=== PATIENT | male | born 1950 | race Caucasian/White ===

== ENCOUNTER 2020-07-20 09:19 | Outpatient (CLI) | payer MEDICARE ==
[2020-07-20 12:28] LABS: #Basophils 0.1 10x3/uL (0.0-0.2); #Eosinphils 1.8 10x3/uL (0.0-0.5); #Monocytes 0.8 10x3/uL (0.0-1.1); %Basophils 0.6 % (0.0-2.0); %Eosinophils 19.3 % (0.0-6.0); %Lymphocytes 17.6 % (18.0-47.0); %Monocytes 8.5 % (0.0-10.0); %Neutrophils 53.4 % (40.0-75.0); Hemoglobin 11.8 g/dL (13.5-17.5); Mean Corpuscular HGB CONC 34.1 g/dL (32.0-36.0); Mean Corpuscular Hemoglobin 30.6 pg (27.0-33.0); Mean Corpuscular Volume 89.9 fl (81.2-95.1); Platelet Count 211 10x3/uL (150-450); RBC Distribution Width 13.3 % (11.5-14.5); Red Blood Cell (RBC) Count 3.85 10x6/uL (4.32-5.72); White Blood Cell (WBC) Count 9.3 10x3/uL (3.5-10.5)
[2020-07-20 12:46] LABS: Anion Gap 14 mmol/L (10-20); BUN (Urea Nitrogen) 22 mg/dL (8.4-25.7); Calc. Creatinine Clearance 0 mL/min (70-130); Calcium 9.3 mg/dL (7.8-10.44); Carbon Dioxide 22 mmol/L (23-31); Chloride 106 mmol/L (98-107); Glucose 94 mg/dL (80-115); Potassium 4.5 mmol/L (3.5-5.1); Sodium 137 mmol/L (136-145)
[2020-07-20 13:05] LABS: INR-International Normal Ratio 1.1; Prothrombin Time 11.7 sec (9.5-12.1)
== END 2020-07-20 09:20 | disposition home or self-care (01) ==
LOC: LABBT 09:19
PROVIDERS: ATTEND Orthopaedic Surgery
DX: Z01.818 Encounter for other preprocedural examination (principal); M16.12 Unilateral primary osteoarthritis, left hip
CPT/HCPCS: 80048; 85025; 85610; 87081; 93005; 93010

== ENCOUNTER 2022-10-30 09:39 | Outpatient (CLI) | payer MEDICARE | END 2022-10-30 09:40 | disposition home or self-care (01) | LOC: SCSMRI 09:39 | PROVIDERS: ATTEND Orthopaedic Surgery | DX: M19.012 Primary osteoarthritis, left shoulder (principal); S46.912A Strain of unspecified muscle, fascia and tendon at shoulder and upper arm level, left arm, initial encounter; S43.402A Unspecified sprain of left shoulder joint, initial encounter ==

== ENCOUNTER 2022-12-03 12:17 | Outpatient (CLI) | payer MEDICARE ==
[2022-12-03 13:31] LABS: #Basophils 0.1 10x3/uL (0.0-0.2); #Eosinphils 0.4 10x3/uL (0.0-0.5); #Monocytes 0.7 10x3/uL (0.0-1.1); #Neutrophils 5.2 10x3/uL (1.5-8.4); %Basophils 0.6 % (0.0-2.0); %Eosinophils 5.3 % (0.0-6.0); %Lymphocytes 17.6 % (18.0-47.0); %Monocytes 8.9 % (0.0-10.0); %Neutrophils 67.2 % (40.0-75.0); Hemoglobin 12.5 g/dL (13.5-17.5); Mean Corpuscular HGB CONC 34.7 g/dL (32.0-36.0); Mean Corpuscular Volume 92.1 fl (81.2-95.1); Mean Platelet Volume 9.7 fl (7.4-10.4); Platelet Count 180 10x3/uL (150-450); RBC Distribution Width 13.1 % (11.5-14.5); Red Blood Cell (RBC) Count 3.91 10x6/uL (4.32-5.72); White Blood Cell (WBC) Count 7.7 10x3/uL (3.5-10.5)
[2022-12-03 13:53] LABS: Prothrombin Time 11.1 sec (9.5-12.1)
[2022-12-03 14:08] LABS: Anion Gap 15 mmol/L (10-20); BUN (Urea Nitrogen) 27 mg/dL (8.4-25.7); Calc. Creatinine Clearance 0 mL/min (70-130); Calcium 9.3 mg/dL (7.8-10.44); Carbon Dioxide 21 mmol/L (23-31); Chloride 105 mmol/L (98-107); Estimated GFR 67; Glucose 108 mg/dL (83-110); Potassium 4.3 mmol/L (3.5-5.1); Sodium 137 mmol/L (136-145)
== END 2022-12-03 12:18 | disposition home or self-care (01) ==
LOC: LABBT 12:17
PROVIDERS: ATTEND Orthopaedic Surgery
DX: Z01.818 Encounter for other preprocedural examination (principal); M19.012 Primary osteoarthritis, left shoulder
CPT/HCPCS: 80048; 85025; 85610; 93005; 93010

== ENCOUNTER 2023-03-12 12:49 | Outpatient (CLI) | payer MEDICARE ==
[2023-03-12 13:56] LABS: Anion Gap 11 mmol/L (10-20); BUN (Urea Nitrogen) 26 mg/dL (8.4-25.7); Calc. Creatinine Clearance 0 mL/min (70-130); Calcium 8.7 mg/dL (7.8-10.44); Carbon Dioxide 24 mmol/L (23-31); Chloride 106 mmol/L (98-107); Estimated GFR 53; Glucose 120 mg/dL (83-110); Potassium 4.3 mmol/L (3.5-5.1); Prothrombin Time 10.8 sec (9.5-12.1); Sodium 137 mmol/L (136-145)
[2023-03-12 14:04] LABS: #Basophils 0.1 10x3/uL (0.0-0.2); #Eosinphils 0.4 10x3/uL (0.0-0.5); #Monocytes 0.7 10x3/uL (0.0-1.1); #Neutrophils 5.8 10x3/uL (1.5-8.4); %Basophils 0.7 % (0.0-2.0); %Eosinophils 4.5 % (0.0-6.0); %Lymphocytes 15.9 % (18.0-47.0); %Monocytes 8.1 % (0.0-10.0); %Neutrophils 70.3 % (40.0-75.0); Hematocrit 33.8 % (38.8-50.0); Hemoglobin 11.9 g/dL (13.5-17.5); Mean Corpuscular HGB CONC 35.2 g/dL (32.0-36.0); Mean Corpuscular Hemoglobin 32.3 pg (27.0-33.0); Mean Corpuscular Volume 91.8 fl (81.2-95.1); Mean Platelet Volume 9.6 fl (7.4-10.4); Platelet Count 208 10x3/uL (150-450); RBC Distribution Width 12.9 % (11.5-14.5); Red Blood Cell (RBC) Count 3.68 10x6/uL (4.32-5.72); White Blood Cell (WBC) Count 8.3 10x3/uL (3.5-10.5)
== END 2023-03-12 12:50 | disposition home or self-care (01) ==
LOC: LABBT 12:49
PROVIDERS: ATTEND Orthopaedic Surgery
DX: Z01.818 Encounter for other preprocedural examination (principal); M19.012 Primary osteoarthritis, left shoulder
CPT/HCPCS: 80048; 85025; 85610; 93005; 93010

== ENCOUNTER 2023-03-20 06:31 | Observation (INO) | payer MEDICARE ==
[2023-03-20] MEDS ORDERED: Lidocaine 2% PF 5 ML VIAL ONE (06:38)
[2023-03-20] MEDS ORDERED: Rocuronium Bromide 10 MG/ML (10ML VIAL) ONE (06:38)
[2023-03-20] MEDS ORDERED: PROPOFOL 20 ML ONE (06:38)
[2023-03-20] MEDS ORDERED: Phenylephrine 10 MG/ML VIAL ONE (06:39)
[2023-03-20] MEDS ORDERED: fentaNYL 50 mcg/mL 1 mL Vial ONE ×2 (06:48→10:07)
[2023-03-20] MEDS ORDERED: Ropivacaine 0.5% HCl/PF (150 MG/30 ML VIAL) ONE (06:49)
[2023-03-20] MEDS ORDERED: Ropivacaine 0.2% HCl/PF 20 ML ONE (06:49)
[2023-03-20] MEDS ORDERED: Midazolam HCl 2 mg/2 ml Vial ONE (06:49)
[2023-03-20] MEDS ORDERED: Tranexamic Acid 1,000 MG/10 ML VIAL ONE (07:00)
[2023-03-20] MEDS ORDERED: Vancomycin (BATCH) 1.5 GM/300 ML BAG ONE (07:00)
[2023-03-20] MEDS ORDERED: Sodium Chloride 0.9% 100 ML ONE ×2 (07:00→07:08)
[2023-03-20] MEDS ORDERED: CEFAZOLIN 2 GM VIAL ONE (07:08)
[2023-03-20] MEDS ORDERED: fentaNYL PF 100 MCG/2 ML SYRINGE ONE (07:33)
[2023-03-20] MEDS ORDERED: fentaNYL 50 mcg/mL 1 mL Vial SLOW IVP PRN (07:36)
[2023-03-20] MEDS ORDERED: traMADol HCl 50 MG TAB PO PRN (07:45)
[2023-03-20] MEDS ORDERED: Ropivacaine 0.2% 550 ML 550 ML NERVE BLCK SCH (07:45)
[2023-03-20] MEDS ORDERED: Promethazine HCl 25 MG/ML VIAL IM PRN (07:45)
[2023-03-20] MEDS ORDERED: Zolpidem Tartrate 5 MG TAB PO PRN ×2 (07:45→12:05)
[2023-03-20] MEDS ORDERED: Ondansetron PF 4 MG/2 ML Vial IVP PRN ×2 (07:45→12:05)
[2023-03-20] MEDS ORDERED: Ondansetron PF 4 MG/2 ML Vial ONE (08:01)
[2023-03-20] MEDS ORDERED: Dexamethasone 20 MG/5 ML VIAL ONE (08:01)
[2023-03-20] MEDS ORDERED: Glycopyrrolate 0.2 MG/ML 5 ML SYRINGE ONE (09:30)
[2023-03-20] MEDS ORDERED: NEOSTIGMINE 3 MG/3 ML SYR 3 MG/3 ML SYRINGE ONE (09:30)
[2023-03-20] MEDS ORDERED: Milk Of Magnesia 30 ML UDCUP PO PRN (12:05)
[2023-03-20] MEDS ORDERED: Bisacodyl 10 MG SUPP PR PRN (12:05)
[2023-03-20] MEDS ORDERED: diphenhydrAMINE 50 MG CAP PO PRN (12:05)
[2023-03-20] MEDS ORDERED: Acetaminophen 325 MG TAB PO PRN (12:05)
[2023-03-20] MEDS ORDERED: Ondansetron ODT 4 MG TAB PO PRN (12:05)
[2023-03-20] MEDS ORDERED: CEFAZOLIN 2 GM in Sodium Chloride 0.9% 100 ML IVPB SCH (12:05)
[2023-03-20 12:46] VITALS: BMI 29.8
[2023-03-20] MEDS: Sodium Chloride 0.9% 1,000 ML IV SCH (13:54)
[2023-03-20] MEDS: CEFAZOLIN 2 GM in Sodium Chloride 0.9% 100 ML IVPB SCH (15:36)
[2023-03-20] MEDS: Gabapentin 400 MG CAP PO SCH (20:42)
[2023-03-20] MEDS: Amlodipine 5 MG TAB PO SCH (20:42)
[2023-03-20] MEDS: Potassium Chloride 10 MEQ TAB PO SCH (20:43)
[2023-03-20] MEDS: Hydrochlorothiazide 25 MG TAB PO SCH (20:43)
[2023-03-20] MEDS: Famotidine 20 MG TAB PO SCH (20:44)
[2023-03-20] MEDS: HYDROcodone/Acetaminophen 10/325 mg Tablet PO PRN (21:50)
[2023-03-21] MEDS: traMADol HCl 50 MG TAB PO PRN (00:39)
[2023-03-21] MEDS: HYDROcodone/Acetaminophen 10/325 mg Tablet PO PRN (02:20)
[2023-03-21 04:53] LABS: Hematocrit 27.4 % (42.0-52.0); Hemoglobin 9.3 g/dL (14.0-18.0); Mean Corpuscular HGB CONC 33.9 g/dL (32.0-36.0); Mean Corpuscular Hemoglobin 32.4 pg (27.0-31.0); Mean Corpuscular Volume 95.5 fl (78.0-98.0); Mean Platelet Volume 9.5 fL (7.4-10.4); Platelet Count 193 10x3/uL (130-400); RBC Distribution Width 13.6 % (11.5-14.5); Red Blood Cell (RBC) Count 2.87 mill/uL (4.70-6.10); White Blood Cell (WBC) Count 10.6 10x3/uL (4.8-10.8)
[2023-03-21 05:15] LABS: Anion Gap 12 mmol/L (10-20); BUN (Urea Nitrogen) 18 mg/dL (8.4-25.7); Calc. Creatinine Clearance 75 mL/min (70-130); Calcium 8.4 mg/dL (7.8-10.44); Carbon Dioxide 21 mmol/L (23-31); Chloride 105 mmol/L (98-107); Estimated GFR 81; Glucose 126 mg/dL (83-110); Potassium 3.7 mmol/L (3.5-5.1); Sodium 134 mmol/L (136-145)
[2023-03-21] MEDS: Levothyroxine Sodium 125 MCG TAB PO SCH (05:37)
[2023-03-21] MEDS: Hydrochlorothiazide 25 MG TAB PO SCH (05:37)
[2023-03-21] MEDS: Magnesium Oxide 400 MG TAB PO SCH (08:58)
[2023-03-21] MEDS: Lisinopril 20 MG TAB PO SCH (08:59)
[2023-03-21] MEDS: Ascorbic Acid 500 mg Chewable Tablet PO SCH (08:59)
[2023-03-21] MEDS ORDERED: MSM PO SCH (09:00)
[2023-03-21] MEDS ORDERED: [UNRECOGNIZED DRUG - OTHER] PO SCH (09:00)
[2023-03-21] MEDS ORDERED: GLUCOSAMINE PO SCH (09:00)
[2023-03-21] MEDS ORDERED: Cyanocobalamin (Vitamin B-12) 1,000 MCG TAB PO SCH (09:00)
[2023-03-21] MEDS ORDERED: MAGNESIUM PO SCH (09:00)
[2023-03-21 12:45] VITALS: BP 150/94; TEMP 97.8
[2023-03-21] MEDS: Ondansetron ODT 4 MG TAB PO SCH (13:16)
== END 2023-03-21 13:24 | disposition home or self-care (01) ==
LOC: SDC 06:31 → SURG A 07:08
PROVIDERS: ADMIT Orthopaedic Surgery; ATTEND Orthopaedic Surgery
PROC: 0RRK0JZ Replacement of Left Shoulder Joint with Synthetic Substitute, Open Approach (ICD-10-PCS; principal; 2023-03-20)
PROC: 0LS40ZZ Reposition Left Upper Arm Tendon, Open Approach (ICD-10-PCS; 2023-03-20)
DX: M19.012 Primary osteoarthritis, left shoulder (principal); M75.22 Bicipital tendinitis, left shoulder; I10 Essential (primary) hypertension; E07.9 Disorder of thyroid, unspecified; Z87.891 Personal history of nicotine dependence; Z79.890 Hormone replacement therapy; Z79.899 Other long term (current) drug therapy
CPT/HCPCS: 23472; 24340; 80048; 85027; 97116; 97530; 97535; A4306; C1713; C1776 ×2; J3010; J3370; 36415; J1100; J2001; J2250; J2371; J2405; J2704; J2795; J3490; Q0162